=== PATIENT | male | born 1980 | race Caucasian/White ===

== ENCOUNTER 2020-05-16 21:35 | Observation (INO) ==
[2020-05-16] MEDS ORDERED: Isovue-370 500 ML BOTTLE IVP ONE (21:47)
[2020-05-16 21:56] LABS: Hemoglobin 12.6 g/dL (12.9-16.9); Mean Corpuscular HGB Conc 34.1 g/dL (31.6-35.5); Mean Corpuscular Hemoglobin 30.8 pg (28.0-33.3); Mean Corpuscular Volume 90.5 fL (83.0-100.0); Mean Platelet Volume 9.8 fL (9.4-12.4); Platelet Count 263 K/mcL (140-400); Red Blood Count 4.09 M/mcL (4.19-5.50); Red Cell Distribution Width 12.6 % (11.5-14.5); White Blood Count 9.5 K/mcL (4.3-11.1)
[2020-05-16 22:07] LABS: Prothrombin Time 11.2 Seconds (9.4-12.1)
[2020-05-16 22:09] LABS: Activated Partial Thrombo Time 29.4 Seconds (26.0-36.0)
[2020-05-16 22:13] LABS: BUN/Creatinine Ratio 11 (6-26); Blood Urea Nitrogen 12 mg/dL (6-20); Calcium 8.4 mg/dL (8.6-10.3); Carbon Dioxide 25 mEq/L (23-29); Chloride 107 mEq/L (98-107); Ethanol < 10 mg/dL (Less than 10); Glucose 99 mg/dL (70-105); Osmolality,Calculated 284 (280-300); Potassium 4.2 mEq/L (3.5-5.1); Sodium 137 mEq/L (136-145); eGFR For African Americans > 60 (> 60); eGFR For Non-African Americans > 60 (> 60)
[2020-05-16 22:15] LABS: Troponin I < 0.03 ng/mL (< 0.04)
[2020-05-16] MEDS ORDERED: Naloxone 0.4 MG/ML INJ IVP PRN (23:11)
[2020-05-16] MEDS ORDERED: Acetaminophen 325 MG TABLET PO PRN (23:11)
[2020-05-16] MEDS ORDERED: Ondansetron ODT 4 MG TAB.RAPDIS SL PRN (23:11)
[2020-05-16] MEDS ORDERED: Perflutren Lipid Microsphere 1.3 ML in 0.9 % Sodium Chloride 8.7 ML IVP PRN (23:13)
[2020-05-16] MEDS: Aspirin 325 MG TABLET PO SCH (23:29)
[2020-05-16 23:31] LABS: Bilirubin,Urine Negative (Negative); Blood,Urine Negative (Negative); Clarity,Urine Clear (Clear); Color,Urine Colorless (Yellow); Glucose,Urine (UA) Normal (Normal); Ketones,Urine Negative (Negative); Leukocyte Esterase,Urine Negative (Negative); Nitrite,Urine Negative (Negative); PH,Urine 6.5 pH Units (5.0-8.0); Protein,Urine Negative (Neg-Trace); Specific Gravity,Urine > 1.030 (1.010-1.025); Urobilinogen,Urine Normal (Normal)
[2020-05-16 23:43] LABS: Amphetamine Screen,Urine Negative ng/mL (Cutoff=1000); Barbiturate Screen,Urine Negative ng/mL (Cutoff=200); Benzodiazepines Screen,Urine Negative ng/mL (Cutoff=200); Cannabinoid Screen,Urine Negative ng/mL (Cutoff = 50); Cocaine Screen,Urine Negative ng/mL (Cutoff= 300); Opiate Screen,Urine Negative ng/mL (Cutoff=300); Phencyclidine Screen,Urine Negative ng/mL (Cutoff=25)
[2020-05-17] MEDS ORDERED: hydrOXYzine pamoate 25 MG CAPSULE PO PRN (00:18)
[2020-05-17 03:02] LABS: Basophils % 0.4 %; Eosinophils # 0.3 K/mcL (0.0-0.6); Eosinophils % 2.5 %; Hematocrit 34.8 % (37.5-50.1); Hemoglobin 11.7 g/dL (12.9-16.9); Immature Granulocytes % 0.3 % (0-4); Lymphocytes # 3.1 K/mcL (0.6-4.6); Lymphocytes % 30.9 %; Mean Corpuscular HGB Conc 33.6 g/dL (31.6-35.5); Mean Corpuscular Hemoglobin 30.9 pg (28.0-33.3); Mean Corpuscular Volume 91.8 fL (83.0-100.0); Mean Platelet Volume 10.2 fL (9.4-12.4); Monocytes # 0.8 K/mcL (0.0-1.3); Monocytes % 8.1 %; Neutrophils # 5.8 K/mcL (1.6-8.9); Platelet Count 237 K/mcL (140-400); Red Blood Count 3.79 M/mcL (4.19-5.50); Red Cell Distribution Width 12.6 % (11.5-14.5); Segmented Neutrophils % 57.8 %
[2020-05-17 03:12] LABS: Prothrombin Time 11.9 Seconds (9.4-12.1)
[2020-05-17 03:25] LABS: Alanine Aminotransferase 27 Units/L (7-52); Albumin 3.4 g/dL (3.5-5.7); Albumin/Globulin Ratio 1.5 (1.1-2.2); Alkaline Phosphatase 77 Units/L (34-104); Aspartate Amino Transferase 13 Units/L (13-39); BUN/Creatinine Ratio 15 (6-26); Bilirubin,Total 0.4 mg/dL (0.3-1.0); Blood Urea Nitrogen 15 mg/dL (6-20); Calcium 8.6 mg/dL (8.6-10.3); Carbon Dioxide 24 mEq/L (23-29); Chloride 106 mEq/L (98-107); Chol/HDL Ratio 7.4 (0-4.9); Cholesterol 162 mg/dL (< 200); Globulin 2.2 g/dL (2.4-3.5); Glucose 125 mg/dL (70-105); HDL Cholesterol 22 mg/dL (40-59); LDL Cholesterol,Calculated 76 mg/dL (< 100); Osmolality,Calculated 284 (280-300); Potassium 3.7 mEq/L (3.5-5.1); Sodium 136 mEq/L (136-145); Total Protein 5.6 g/dL (6.4-8.9); Triglycerides 318 mg/dL (< 150); eGFR For African Americans > 60 (> 60); eGFR For Non-African Americans > 60 (> 60)
[2020-05-17 03:29] LABS: % Iron Saturation 20 % (20-55); Iron 53 mcg/dL (65-175); Transferrin 193 mg/dL (203-362)
[2020-05-17 03:42] LABS: Ferritin 96 ng/mL (20-250)
[2020-05-17 03:57] LABS: Thyroid Stimulating Hormone < 0.010 mcIU/mL (0.340-5.600)
[2020-05-17 04:48] LABS: Folate 5.2 ng/mL (3.0-16.0)
[2020-05-17] MEDS ORDERED: lisinopriL 20 MG TABLET PO SCH (09:00)
[2020-05-17] MEDS: Aspirin 325 MG TABLET PO SCH (10:04)
[2020-05-17 11:26] LABS: Triiodothyronine (T3) Free 4.91 pg/mL (2.50-3.90)
[2020-05-17 15:16] LABS: Hematocrit 37.8 % (37.5-50.1)
[2020-05-17 16:26] VITALS: BP 119/76
[2020-05-17] MEDS ORDERED: Aspirin 81 MG TAB.CHEW PO ONE (22:29)
== END 2020-05-17 17:51 | disposition home or self-care (01) ==
LOC: 3ANU 21:35 → EMEROOARM 21:35 → SUATTDRO 23:09 → 3ANU 23:54
PROVIDERS: ADMIT Student in an Organized Health Care Education/Training Program; ATTEND Nurse Practitioner